=== PATIENT | female | born 1995 | race Hispanic/Latino ===

== ENCOUNTER 2019-08-27 16:23 | Emergency (ER) | payer SELFPAY ==
--- OUTSIDE RECORDS SUMMARY | 2019-08-27 16:31 | XMS REPORT | Continuity of Care Document ---
:1995 Author Organization [facility] t Address [address] [place] [address] Care Team Providers Name Role Phone Bird LEMA, Bakari Attending Clinician Problems This patient has no known problems. Allergies, Adverse Reactions, Alerts This patient has no known allergies or adverse reactions. Medications This patient has no known medications. Procedures This patient has no known procedures. Encounters Start End Encounter Admission Attending Care Care Encounter Source Date/Time Date/Time Type Type Clinicians Facility Department ID 2018-10-20 2018-10-20 Office Jaida Pang [facility] [phone] [id number] 10:59:25 11:42:35 Visit Bakari Constantino [id number] Josette [id number] Heydi [id number] [facility] [address] [facility] Results This patient has no known results.
--- NOTE | 2019-08-27 19:47 | ER ---
Nurse's Notes [facility] Name: Bonita Sanchez Age: 23 yrs Sex: Female : 1995 Arrival Date: 08/27/2019 Time: 16:26 Bed DIS1 Private MD: Diagnosis: Acute upper respiratory infection, unspecified Presentation: 08/26 16:46 Chief complaint: Patient states: I can't taste and smell anything. I've been having ca1 headaches for the last 3 days, my body feels sore, runny nose and my mouth is tingly. I am exposed to people all day, I don't wear masks and gloves. Denies fever. Denies SOB. Reports dry cough for a day on the first day. Coronavirus screen: Patient reports a cough. Patient denies shortness of breath or difficulty breathing. Patient denies measured and/or subjective temperature greater than 100.4F prior to today's visit. Patient denies travel on a cruise ship or to a country the [facility] currently lists as an affected area. Patient denies contact with known and/or suspected case of COVID-19. Surgical mask in place, instructed to keep at all times and distance self from others in the lobby. Verbalized understanding. Ebola Screen: Patient negative for fever greater than or equal to 101.5 degrees Fahrenheit, and additional compatible Ebola Virus Disease symptoms Patient denies exposure to infectious person. Patient denies travel to an Ebola-affected area in the 21 days before illness onset. No symptoms or risks identified at this time. Initial Sepsis Screen: Does the patient meet any 2 criteria? No. Patient's initial sepsis screen is negative. Does the patient have a suspected source of infection? No. Patient's initial sepsis screen is negative. Risk Assessment: Do you want to hurt yourself or someone else? Patient reports no desire to harm self or others. Onset of symptoms was August 27, 2019. 16:46 Method Of Arrival: Ambulatory ca1 16:46 Acuity: BREA 4 ca1 Triage Assessment: 18:45 General: Appears in no apparent distress. uncomfortable, Behavior is cooperative, bp appropriate for age, anxious. Pain: Complains of pain in head. EENT: No deficits noted. Neuro: No deficits noted. Cardiovascular: No deficits noted. Respiratory: No deficits noted. GI: No signs and/or symptoms were reported involving the gastrointestinal system. : No signs and/or symptoms were reported regarding the genitourinary system. Derm: No deficits noted. Musculoskeletal: No deficits noted. 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 - Social history:: Smoking status: Patient reports the use of cigarette tobacco products, denies chronic smoking, but will smoke occasionally, Patient/guardian denies using alcohol, street drugs, The patient lives with family. - Family history:: not pertinent. Screenin:45 Abuse screen: Denies threats or abuse. Denies injuries from another. Nutritional bp screening: No deficits noted. Tuberculosis screening: No symptoms or risk factors identified. Fall Risk None identified. Assessment: 18:45 General: SEE TRIAGE NOTE. bp 20:05 Reassessment: pt reported understanding of discharge instructions. General: Appears in jd3 no apparent distress. comfortable, Behavior is calm, cooperative, appropriate for age. Pain: Denies pain. Neuro: Level of Consciousness is awake, alert, obeys commands, Oriented to person, place, time, situation. Cardiovascular: Capillary refill < 3 seconds Patient's skin is warm and dry. Respiratory: Reports cough that is persistent Airway is patent Respiratory effort is even, unlabored, Respiratory pattern is regular, symmetrical. GI: No signs and/or symptoms were reported involving the gastrointestinal system. : No signs and/or symptoms were reported regarding the genitourinary system. EENT: No signs and/or symptoms were reported regarding the EENT system. Derm: Skin is intact, Skin is dry, Skin is normal, Skin temperature is warm. Musculoskeletal: Circulation, motion, and sensation intact. Range of motion: intact in all extremities. Vital Signs: 16:46 BP 99 / 72; Pulse 72; Resp 18 S; Temp 97.4(TE); Pulse Ox 99% on R/A; Weight 60.78 kg ca1 (R); Height 5 ft. 0 in. (152.40 cm) (R); 20:06 Pulse 73; Resp 17 S; Pulse Ox 99% on R/A; jd3 16:46 Body Mass Index 26.17 (60.78 kg, 152.40 cm) ca1 ED Course: 16:26 Patient arrived in ED. ag5 16:50 Triage completed. ca1 16:51 Arm band placed on right wrist. ca1 18:45 Neo Michaels, RN is Primary Nurse. bp 18:45 Patient has correct armband on for positive identification. Bed in low position. Call bp light in reach. Side rails up X2. 19:01 Oanh Cortes MD is Attending Physician. ma2 20:06 No provider procedures requiring assistance completed. Patient did not have IV access jd3 during this emergency room visit. Administered Medications: No medications were administered Outcome: 19:46 Discharge ordered by . ma2 20:06 Discharged to home ambulatory, with family. jd3 20:06 Condition: stable 20:06 Discharge instructions given to patient, Instructed on discharge instructions, follow up and referral plans. Demonstrated understanding of instructions, follow-up care. 20:06 Patient left the ED. jd3 Signatures: Elías Smith RN RN jNeo Carmen, RN RN Oanh Barragan MD MD wiBeatrice Vaughn RN RN ca1 Constance Marcus ag5
--- NOTE | 2019-08-27 19:47 | EDPHYS ---
Physician Documentation [facility] Name: Bonita Sanchez Age: 23 yrs Sex: Female : 1995 Arrival Date: 08/27/2019 Time: 16:26 Bed DIS1 Private MD: ED Physician Oanh oCrtes HPI: 08/26 19:45 This 23 yrs old Female presents to ER via Ambulatory with complaints of R/O ma2 COVID. 19:45 Onset: The symptoms/episode began/occurred gradually, 2 day(s) ago. Severity of ma2 symptoms: At their worst the symptoms were very mild in the emergency department the symptoms have improved. The patient has not experienced similar symptoms in the past. has runny nose, no other syx. 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 - Social history:: Smoking status: Patient reports the use of cigarette tobacco products, denies chronic smoking, but will smoke occasionally, Patient/guardian denies using alcohol, street drugs, The patient lives with family. - Family history:: not pertinent. ROS: 19:45 Constitutional: Negative for fever, chills, and weight loss. ma2 19:45 All other systems are negative. Exam: 19:45 Constitutional: This is a well developed, well nourished patient who is awake, alert, ma2 and in no acute distress. Eyes: Pupils equal round and reactive to light, extra-ocular motions intact. Lids and lashes normal. Conjunctiva and sclera are non-icteric and not injected. Cornea within normal limits. Periorbital areas with no swelling, redness, or edema. ENT: Nares patent. No nasal discharge, no septal abnormalities noted. Tympanic membranes are normal and external auditory canals are clear. Oropharynx with no redness, swelling, or masses, exudates, or evidence of obstruction, uvula midline. Mucous membranes moist. Neck: Trachea midline, no thyromegaly or masses palpated, and no cervical lymphadenopathy. Supple, full range of motion without nuchal rigidity, or vertebral point tenderness. No Meningismus. Chest/axilla: Normal chest wall appearance and motion. Nontender with no deformity. No lesions are appreciated. Cardiovascular: Regular rate and rhythm with a normal S1 and S2. No gallops, murmurs, or rubs. Normal PMI, no JVD. No pulse deficits. Respiratory: Lungs have equal breath sounds bilaterally, clear to auscultation and percussion. No rales, rhonchi or wheezes noted. No increased work of breathing, no retractions or nasal flaring. Abdomen/GI: Soft, non-tender, with normal bowel sounds. No distension or tympany. No guarding or rebound. No evidence of tenderness throughout. MS/ Extremity: Pulses equal, no cyanosis. Neurovascular intact. Full, normal range of motion. Neuro: Awake and alert, GCS 15, oriented to person, place, time, and situation. Cranial nerves II-XII grossly intact. Motor strength 5/5 in all extremities. Sensory grossly intact. Cerebellar exam normal. Normal gait. Vital Signs: 16:46 BP 99 / 72; Pulse 72; Resp 18 S; Temp 97.4(TE); Pulse Ox 99% on R/A; Weight 60.78 kg ca1 (R); Height 5 ft. 0 in. (152.40 cm) (R); 20:06 Pulse 73; Resp 17 S; Pulse Ox 99% on R/A; jd3 16:46 Body Mass Index 26.17 (60.78 kg, 152.40 cm) ca1 MDM: 19:01 Patient medically screened. ma2 19:45 Differential Diagnosis uri, covid, flu vs other common cold . Data reviewed: vital ma2 signs, nurses notes. Counseling: I had a detailed discussion with the patient and/or guardian regarding: the historical points, exam findings, and any diagnostic results supporting the discharge/admit diagnosis, the presence of at least one elevated blood pressure reading (>120/80) during this emergency department visit, the need for outpatient follow up, I offered rx for acute bronchitis, patient declined . Response to treatment: the patient's symptoms have markedly improved after treatment. Administered Medications: No medications were administered Disposition: 08/27/19 19:46 Discharged to Home. Impression: Acute upper respiratory infection, unspecified. - Condition is Stable. - Discharge Instructions: Upper Respiratory Infection, Adult, COVID-19. - Work release form, Medication Reconciliation Form, Thank You Letter, Antibiotic Education, Prescription Opioid Use form. - Follow up: Private Physician; When: Tomorrow; Reason: Continuance of care. - Notes: recommends testing at one of the testing sites, list is provided Signatures: Elías Smith RN RN jd3 Oanh Cortes MD MD ct2 Beatrice Easmtan RN RN ca1 Corrections: (The following items were deleted from the chart) 20:06 19:46 08/27/2019 19:46 Discharged to Home. Impression: Acute upper respiratory jd3 infection, unspecified. Condition is Stable. Forms are Medication Reconciliation Form, Thank You Letter, Antibiotic Education, Prescription Opioid Use. Follow up: Private Physician; When: Tomorrow; Reason: Continuance of care. rosy
== END 2019-08-27 20:06 | disposition home or self-care (01) ==
LOC: ER 16:23
DX: J06.9 Acute upper respiratory infection, unspecified (principal); F17.210 Nicotine dependence, cigarettes, uncomplicated
CPT/HCPCS: 99281